=== PATIENT | female | born 1995 | race Caucasian/White ===

== ENCOUNTER 2017-10-16 12:47 | Emergency (ER) | payer OTHER ==
[2017-10-16] MEDS ORDERED: TETRACAINE HCL 0.5% OPH SOLN 2 ML OS ONE (13:10)
--- NOTE | 2017-10-16 14:23 | ER Document Report ---
ED Eye Complaint - General Chief Complaint: Eye Injury Stated Complaint: LEFT EYE PAIN Time Seen by Provider: 10/16/17 13:04 Notes: Patient is a 39.5 week 22 year old female who presents to the ED complaining of left eye injury. Patient states that her son accidentally put his finger in her eye and she admits to pain. She states that she is able to see out of the eye denies any floaters, loss of vision, halos, spots. Able to tolerate visual acuity test. Does not wear contact lenses. TRAVEL OUTSIDE OF THE [place] IN LAST 30 DAYS: No - Related Data Allergies/Adverse Reactions: No Known Allergies Allergy (Unverified 10/16/17 12:48) Past Medical History - Social History Smoking Status: Never Smoker Chew tobacco use (# tins/day): No Frequency of alcohol use: None Drug Abuse: None Family History: Reviewed & Not Pertinent Patient has suicidal ideation: No Patient has homicidal ideation: No Renal/ Medical History: Denies: Hx Peritoneal Dialysis Review of Systems - Review of Systems Constitutional: No symptoms reported EENT: See HPI Cardiovascular: No symptoms reported Respiratory: No symptoms reported Skin: No symptoms reported -: Yes All other systems reviewed and negative Physical Exam - Vital signs Vitals: Temp Pulse Resp BP Pulse Ox 97.7 F 95 18 132/78 H 98 10/16/17 12:53 10/16/17 12:53 10/16/17 12:53 10/16/17 12:53 10/16/17 12:53 - Notes Notes: PHYSICAL EXAM GENERAL: Alert, interacts well. HEAD: Normocephalic, atraumatic. EYES: Pupils equal, round, and reactive to light. Extraocular movements intact. Fluoscein testing with central abraison left eye no FB ENT: Oral mucosa moist, tongue midline. NECK: Full range of motion. Supple. Trachea midline. NEUROLOGICAL: Alert and oriented x4. Normal speech. PSYCH: Normal affect, normal mood. SKIN: Warm, dry, normal turgor. No rashes or lesions noted. - HEENT Visual acuity- Right eye: 20/15 Visual acuity- Left eye: 20/40 Visual acuity- Both eyes: 20/15 Corrective lenses worn: No Course - Re-evaluation Re-evalutation: Patient is a 22-year-old female hemodynamic stable, no acute distress. Presentation is consistent with a corneal abrasion. Patient educated on expectations, antibiotics and pain management. Patient to follow-up with ophthalmology on Thursday. - Vital Signs Vital signs: Temp Pulse Resp BP Pulse Ox 97.9 F 88 18 130/81 H 99 10/16/17 14:32 10/16/17 14:32 10/16/17 14:32 10/16/17 14:32 10/16/17 14:32 Discharge - Discharge Clinical Impression: Corneal abrasion Qualifiers: Encounter type: initial encounter Laterality: left Qualified Code(s): S05.02XA - Injury of conjunctiva and corneal abrasion without foreign body, left eye, initial encounter Condition: Good Disposition: HOME, SELF-CARE Instructions: Corneal Abrasion ([facility]) Prescriptions: Ketorolac Tromethamine 0.45% [Acuvail 0.45% Oph Soln 0.4 ml/Dropperette] 1 drop OS BID #10 droperette Polymyxin B Sulf/Trimethoprim [Polytrim Eye Drops] 1 drop OD Q3H #10 ml Referrals: JOHN MCCRACKEN MD [Primary Care Provider] - Follow up as needed GASTON DEJESUS MD [ACTIVE STAFF] - Follow up in 3-5 days
[2017-10-16 14:33] VITALS: BP 130/81
== END 2017-10-16 14:33 | disposition home or self-care (01) ==
LOC: ER 12:47
DX: O9A.213 Injury, poisoning and certain other consequences of external causes complicating pregnancy, third trimester (principal); S05.02XA Injury of conjunctiva and corneal abrasion without foreign body, left eye, initial encounter; X58.XXXA Exposure to other specified factors, initial encounter; Z3A.39 39 weeks gestation of pregnancy
CPT/HCPCS: 99283

== ENCOUNTER 2017-10-28 06:39 | Inpatient (IN) | payer OTHER ==
[2017-10-28] MEDS ORDERED: RINGERS SOLUTION,LACTATED 1,000 ML IV PRN (06:59)
[2017-10-28] MEDS ORDERED: RINGERS SOLUTION,LACTATED 300 ML IV ONE (06:59)
[2017-10-28] MEDS ORDERED: OXYTOCIN/NORMAL SALINE 20 UNIT/1,000 ML RTUINJ IV PRN ×2 (06:59→15:49)
[2017-10-28 07:01] LABS: APPEARANCE,URINE CLOUDY; BILIRUBIN,URINE NEGATIVE (NEGATIVE); COLOR,URINE AMBER; GLUCOSE, URINE NEGATIVE (NEGATIVE); KETONES,URINE NEGATIVE (NEGATIVE); LEUKOCYTE ESTERASE,URINE MODERATE (NEGATIVE); NITRITE,URINE NEGATIVE (NEGATIVE); PROTEIN,URINE NEGATIVE (NEGATIVE); URINE SPECIFIC GRAVITY 1.018; UROBILINOGEN,URINE NEGATIVE mg/dL (<2.0)
[2017-10-28 07:17] LABS: URINE AMPHETAMINES SCREEN NEGATIVE; URINE BARBITURATES SCREEN NEGATIVE; URINE BENZODIAZEPINES SCREEN NEGATIVE; URINE COCAINE SCREEN NEGATIVE; URINE MARIJUANA (THC) SCREEN NEGATIVE; URINE METHADONE SCREEN NEGATIVE; URINE PHENCYCLIDINE SCREEN NEGATIVE
[2017-10-28 07:40] LABS: ABSOLUTE BASOPHILS # (AUTO) 0.1 10^3/uL (0.0-0.2); ABSOLUTE EOSINOPHILS # (AUTO) 0.1 10^3/uL (0.0-0.6); ABSOLUTE LYMPHOCYTES (AUTO) 2.5 10^3/uL (0.5-4.7); ABSOLUTE MONOCYTES (AUTO) 0.9 10^3/uL (0.1-1.4); BASOPHILS % (AUTO) 0.5 % (0-2); EOSINOPHILS % (AUTO) 0.8 % (0-6); HEMATOCRIT 37.1 % (36.0-47.0); HEMOGLOBIN 12.7 g/dL (12.0-15.5); LYMPHOCYTES % (AUTO) 21.5 % (13-45); MEAN CORPUSCULAR HEMOGLOBIN 30.3 pg (27.0-33.4); MEAN CORPUSCULAR HGB CONC 34.2 g/dL (32.0-36.0); MEAN CORPUSCULAR VOLUME 89 fl (80-97); PLATELET COUNT 178 10^3/uL (150-450); RED BLOOD COUNT 4.19 10^6/uL (3.72-5.28); RED CELL DISTRIBUTION WIDTH 14.8 % (11.5-14.0); SEGMENTED NEUTROPHILS % (AUTO) 69.2 % (42-78); TOTAL CELLS COUNTED % (AUTO) 100 %; WHITE BLOOD COUNT 11.6 10^3/uL (4.0-10.5)
[2017-10-28] MEDS ORDERED: LIDOCAINE 1% INJ-PF (10 MG/ML) 30 ML SDV ONE (08:05)
[2017-10-28] MEDS ORDERED: OXYTOCIN/NORMAL SALINE 20 UNIT/1,000 ML RTUINJ ONE (08:05)
[2017-10-28] MEDS ORDERED: MISOPROSTOL 0.2 MG TABLET ONE (08:05)
--- NOTE | 2017-10-28 08:58 | Warning Signs in Babies ---
VOD Warning Signs Datetime Report Generated by [facility]: 10/28/2017 08:58 VOD#608 -Warning Signs in Babies: Viewed with Parent(s)/Family (10/28/2017 06:52:Siri Melgoza RN)
--- NOTE | 2017-10-28 09:19 | Admission Physical ---
Datetime Report Generated by CPN: 10/28/2017 09:19 CURRENT ADMISSION Admit Impression : Term, Intrauterine Admit Plan: Admit to Unit ALLERGIES Medication Allergies: No Medication Allergies: No Known Allergies (10/28/2017) Latex: No Latex Allergies OBSTETRICAL HISTORY EDC: 10/23/2017 00:00 : 2 Para: 1 Term: 1 : 0 SAB: 0 IAB: 0 Ectopic: 0 Livin Cesareans: 0 VBACs: 0 Multiple Births: 0 Gestational Diabetes: No Rh Sensitization: No Incompetent Cervix: No SHAREE: No Infertility: No ART Treatment: No Uterine Anomaly: No IUGR: No Hx Previous C/S: No Macrosomia: No Hx Loss/Stillborn: No PIH: No Hx : No Placenta Previa/Abruption: No Depression/PP Depression: No PTL/PROM: No Post Hemorrhage: No Current Procedures: Ultrasound; NST Obstetrical History Comments: -2015 baby boy 7lbs 8 oz epidural g2- current SEE RECORDS Alcohol: No Marijuana : No Cocaine: No Other Illicit Drugs: No Cigarettes: Never Smoker. [id number] MEDICAL HISTORY Diabetes: No Blood Transfusion: No Pulmonary Disease (Asthma, TB): No Breast Disease: No Hypertension: No Armament Mechanic Surgery: No Heart Disease: No Hosp/Surgery: Yes Autoimmune Disorder: No Anesthetic Complications: No Kidney Disease: No Abnormal Pap Smear: No Neuro/Epilepsy: No Psychiatric Disorders: No Other Medical Diseases: No Hepatitis/Liver Disease: No Significant Family History: No Varicosities/Phlebitis: No Trauma/Violence : No Thyroid Dysfunction: Yes Medical History Comments: hashimotos INFECTIOUS HISTORY Gonorrhea: No Genital Herpes: No Chlamydia: No Tuberculosis: No Syphilis: No Hepatitis: No HIV/AIDS Exposure: No Rash or Viral Illness: No HPV: No PHYSICAL EXAM General: Normal HEENT: Normal Neurologic: Normal Thyroid: Normal Heart: Normal Lungs: Normal Breast: Normal Back: Normal Abdomen: Normal Genitourinary Exam: Normal Extremities: Normal DTRs: Normal Pelvic Type: Adequate VAGINAL EXAM Dilatation: 4 Effacement: 50 Station: -2 MEMBRANES Membranes: Ruptured Amniotic Fluid Color: Clear FETUS A Monitoring: External US FHR- Baseline: 125 Variability: Moderate 6-25bpm Accelerations: 10X10 Decelerations: None Presentation: Vertex Admit Comment: 22 yo admitted for iol term nkda edc per lmp 10/23/17 term abdomen nontender fHts 125 average variability uteriine contractions q2-4 min pitocin at 4 milliunits/min epidural prn anticipate PLANS FOR LABOR AND DELIVERY Labor and Delivery: None Pain Management: Epidural Feeding Preference: Breast Benefit of Breast Feed Discussed: Yes Circumcision: Yes INFORMED CONSENT Assignment: Nitin Jiang MD Signature: with User ID: David : with User ID: David
[2017-10-28] MEDS ORDERED: FENTANYL/BUPIVACAINE/NS/PF 300 MCG/150 ML RTUINJ EPI ONE (10:06)
[2017-10-28] MEDS ORDERED: BUPIVACAINE HCL 0.25 % INJ/PF (2.5 MG/1 ML) 30 ML VIAL ONE (10:06)
[2017-10-28] MEDS ORDERED: EPHEDRINE SULFATE INJ 50 MG/1 ML AMPULE ONE (10:06)
[2017-10-28] MEDS ORDERED: LIDOCAINE 2% INJ-PF (20 MG/ML) 10 ML AMPUL ONE (12:42)
--- NOTE | 2017-10-28 14:38 | Warning Signs in Babies ---
VOD Warning Signs Datetime Report Generated by [facility]: 10/28/2017 14:38 VOD#608 -Warning Signs in Babies: Viewed with Parent(s)/Family (10/28/2017 14:30:Michelle Gutierres RN)
[2017-10-28] MEDS ORDERED: BENZOCAINE/MENTHOL AEROSOL SPRAY 56 ML TOP PRN (15:49)
[2017-10-28] MEDS ORDERED: DIBUCAINE 1% OINTMENT 28 GM TP PRN (15:49)
[2017-10-28] MEDS ORDERED: MEASLES,MUMPS&RUBELLA VACC/PF 0.5 ML VIAL SUBCUT PRN (15:49)
[2017-10-28] MEDS ORDERED: DIPH/PERTUSS(ACELL)/TETANUS VAC/PF 0.5 ML SYR (>=10YO) IM PRN (15:49)
[2017-10-28] MEDS ORDERED: ZOLPIDEM TARTRATE 5 MG TABLET PO PRN (15:49)
--- NOTE | 2017-10-28 15:53 | Delivery Summary ---
Del Sum A-C Datetime Report Generated by CPN: 10/28/2017 15:52 DELIVERY PERSONNEL DELIVERY PERSONNEL: [id number] Delivery Doctor:: Selena Muhammad CNM Labor and Delivery Nurse:: Siri Melgoza RNroll slicing machine tender Nurse:: Michelle Gutierres RN Nursery Nurse:: Nettie Mir RN Student Observers:: Mary Wilson RN Buffing Wheel Operator/OVERNIGHT ASSOCIATE: Damari Gutierres CST Buffing Wheel Operator/OVERNIGHT ASSOCIATE: Neeru Patton CNA II MATERNAL INFORMATION Delivery Anesthesia: Epidural Medications After Delivery: Pitocin Bolus-Please Comment Meds After Delivery Comment: Pitocin 20 Units in 1 L NS bolusing per order. Maternal Complications: None Provider Comments: bed prepared for delivery delivery of viable male apgars 8.9 bulb suctioned on perineum LISSETTE left compound hand nuchal x 1 easily reduced to abdomen tactile stimulation elicits spont cry cord clamped cut by fob cord blood obtained placenta intact 3vc 2nd degree vaginal laceration repaired with 2.0 chromic gut under epidural swollen perinuem x3 contractions with pushing ebl 200 cc hemostasis achieved bonding well with infant LABOR SUMMARY EDC: 10/23/2017 00:00 No. Babies in Womb: 1 Attempted: No Labor Anesthesia: Epidural LABOR INFORMATION Reason for Induction: Post Dates Onset of Labor: 10/28/2017 08:15 Complete Dilatation: 10/28/2017 13:47 Oxytocin: Induction Group B Beta Strep: Negative Antibiotics # of Doses: 0 Steroids Given: None Reason Steroids Not Administered: Not Applicable MEMBRANES Membranes Rupture Method: Artificial Rupture of Membranes: 10/28/2017 08:26 Length of Rupture (hr): 5.60 Amniotic Fluid Color: Clear Amniotic Fluid Amount: Large Amniotic Fluid Odor: Normal STAGES OF LABOR Stage 1 hr: 5 Stage 1 min: 32 Stage 2 hr: 0 Stage 2 min: 15 Stage 3 hr: 0 Stage 3 min: 2 Total Time in Labor hr: 5 Total Time in Labor min: 49 VAGINAL DELIVERY Episiotomy: None Laceration #1: Vaginal Laceration Extension #1: Second Degree Laceration Repair: Yes Laceration Repair Note: 2.0 chromic gut under epidural Sponge Count Correct: N/A Sharps Count Correct: N/A CSECTION DELIVERY Primary Indication: N/A Secondary Indication: N/A CSection Incidence: N/A Labor: N/A Elective: N/A BABY A INFORMATION Delivery Date/Time: 10/28/2017 14:02 Method of Delivery: Vaginal Born in Route : No : N/A Forceps: N/A Vacuum Extraction: N/A Shoulder Dystocia : No PRESENTATION/POSITION BABY A Presentation: Cephalic Cephalic Presentation: Vertex Vertex Position: Left Occipital Anterior Breech Presentation: N/A PLACENTA INFORMATION BABY A Placenta Delivery Time : 10/28/2017 14:04 Placenta Method of Delivery: Spontaneous Placenta Status: Delivered SCORES BABY A Heart Rate 1 min: >100 bpm Resp Effort 1 min: Good Cry Reflex Irritability 1 min: Cough or Sneeze or Pulls Away Muscle Tone 1 min: Active Motion Color 1 min: Blue/Pale Resuscitation Effort 1 min: Tactile Stimulation SCORE 1 MIN: 8 Heart Rate 5 min: >100 bpm Resp Effort 5 min: Good Cry Reflex Irritability 5 min: Cough or Sneeze or Pulls Away Muscle Tone 5 min: Active Motion Color 5 min: Body [place], Extremities Blue Resuscitation Effort 5 min: Tactile Stimulation SCORE 5 MIN: 9 INFORMATION BABY A Gestational Age at Delivery: 40.5 Gestational Status: Full Term- 39- 40.6 Weeks Outcome : Liveborn Infant Condition : Stable Infant Sex: Male IDENTIFICATION BABY A Verification Date/Time: 10/28/2017 15:11 ID Band Number: [id number] Mother's Name Verified: Yes Infant RN Verifying : K Clarke RNC/A Melgoza RN WEIGHT/LENGTH BABY A Infant Birthweight (gm): 4050 Infant Weight (lb): 8 Weight (oz): 15 Infant Length (in): 22.00 Infant Length (cm): 55.88 CORD INFORMATION BABY A No. Cord Vessels: 3 Nuchal Cord : Around Neck x1, Loose Nuchal Cord- Other: compound left Cord Blood Taken: Yes-For Eval (Mom's Blood Type - or O+) Infant Suction: Mouth ASSESSMENT BABY A Complications: Other Complications- Other: compound left arm Physical Findings at Delivery: Within Normal Limits Infant Respirations: Appears Normal Skin to Skin: Yes Skin to Skin Time (min): 60 Finance Insurance Manager/ALS Called : No Care By: John Mir [facility] Transferred To: Remains with Mother BABY B INFORMATION : N/A SIGNATURES Assignment: Nitin Jiang MD Signature: with User ID: David : with User ID: David
[2017-10-28] MEDS: FERROUS SULFATE 325 MG TABLET PO SCH (17:56)
[2017-10-28] MEDS: DOCUSATE SODIUM 100 MG CAPSULE PO SCH (17:57)
[2017-10-28] MEDS: IBUPROFEN 800 MG TABLET PO SCH (22:13)
[2017-10-29] MEDS: IBUPROFEN 800 MG TABLET PO SCH ×3 (06:19→21:57)
[2017-10-29 08:37] LABS: HEMATOCRIT 33.5 % (36.0-47.0); HEMOGLOBIN 11.3 g/dL (12.0-15.5); MEAN CORPUSCULAR HEMOGLOBIN 30.3 pg (27.0-33.4); MEAN CORPUSCULAR HGB CONC 33.7 g/dL (32.0-36.0); MEAN CORPUSCULAR VOLUME 90 fl (80-97); PLATELET COUNT 161 10^3/uL (150-450); RED BLOOD COUNT 3.73 10^6/uL (3.72-5.28); RED CELL DISTRIBUTION WIDTH 15.3 % (11.5-14.0); WHITE BLOOD COUNT 12.8 10^3/uL (4.0-10.5)
[2017-10-29] MEDS: DOCUSATE SODIUM 100 MG CAPSULE PO SCH ×2 (09:22→17:29)
[2017-10-29] MEDS: PRENATAL VITAMIN W DHA CAPSULE PO SCH (09:22)
[2017-10-29] MEDS: SENNOSIDES/DOCUSATE 8.6-50 MG 1 EACH TABLET PO SCH (09:23)
[2017-10-29] MEDS: FERROUS SULFATE 325 MG TABLET PO SCH ×2 (09:23→17:29)
--- NOTE | 2017-10-29 13:46 | PDOC PROGRESS REPORT ---
Subjective-OB Progress Note for:: 10/29/17 Subjective: s/p day #1 Pt denies concerns, states lochia is stable, pain is well controlled, voiding without difficulty. Physical Exam (OB) Vital Signs: Temp Pulse Resp BP Pulse Ox 99.2 F 67 17 109/57 L 98 10/29/17 08:02 10/29/17 08:02 10/29/17 08:02 10/29/17 08:02 10/29/17 08:02 Intake & Output 10/28/17 10/29/17 10/30/17 06:59 06:59 06:59 Intake Total 400 Balance 400 Weight 71 kg - Lochia Lochia Amount: Scant < 10 ml Lochia Color: Rubra/Red - Abdomen Description: Tender, Soft Hernia Present: No Fundal Description: Firm, Midline Fundal Height: u/u - u/2 Objective-Diagnostic Laboratory: 10/29/17 07:10 10/29/17 07:10 WBC 12.8 H RBC 3.73 Hgb 11.3 L Hct 33.5 L MCV 90 MCH 30.3 MCHC 33.7 RDW 15.3 H Plt Count 161 Assessment and Plan(PN) - Assessment and Plan (1) Vaginal delivery Is this a current diagnosis for this admission?: Yes Plan: routine pp care - Time Spent with Patient Time with patient: Less than 15 minutes Critical Time spent with patient: Less than 15 minutes Medications reviewed and adjusted accordingly: Yes - Disposition Anticipated Discharge: Home Within: within 24 hours
[2017-10-30] MEDS: IBUPROFEN 800 MG TABLET PO SCH ×2 (06:47→13:27)
--- NOTE | 2017-10-30 10:20 | PDOC DISCHARGE SUMMARY ---
Final Diagnosis Discharge Date: 10/30/17 - Final Diagnosis (1) Vaginal delivery Is this a current diagnosis for this admission?: Yes Discharge Data - Discharge Medication Home Medications: 95/Iron Fum/Folic/Dha [ + Dha Combo Pack] 1 each PO DAILY 10/28 Reason(s) for Admission: Induction of Labor Intrapartum Procedure(s): Spontaneous Vaginal Delivery Complication(s): Laceration-Vaginal Laceration-Degree: 2nd - Diagnosis Test Laboratory: Temp Pulse Resp BP Pulse Ox 98.3 F 96 16 119/62 99 10/30/17 07:56 10/30/17 07:56 10/30/17 07:56 10/30/17 07:56 10/30/17 07:56 10/28/17 10/28/17 10/29/17 06:47 07:29 07:10 RBC 4.19 3.73 Hgb 12.7 11.3 L Hct 37.1 33.5 L Urine Opiates Screen NEGATIVE - Discharge information/Instructions Discharge Activity: Activity As Tolerated Discharge Diet: Regular Disposition: HOME, SELF-CARE Follow up with: [facility] in: 3
[2017-10-30] MEDS: PRENATAL VITAMIN W DHA CAPSULE PO SCH (11:37)
[2017-10-30] MEDS: FERROUS SULFATE 325 MG TABLET PO SCH (11:37)
[2017-10-30] MEDS: SENNOSIDES/DOCUSATE 8.6-50 MG 1 EACH TABLET PO SCH (11:37)
[2017-10-30] MEDS: DOCUSATE SODIUM 100 MG CAPSULE PO SCH (11:38)
[2017-10-30 12:57] VITALS: BP 111/52
== END 2017-10-30 13:35 | disposition home or self-care (01) | DRG 775 ==
LOC: LR 06:39 → 2S 16:12
PROVIDERS: ADMIT Obstetrics & Gynecology; ATTEND Obstetrics & Gynecology
PROC: 10E0XZZ Delivery of Products of Conception, External Approach (ICD-10-PCS; principal; 2017-10-28)
PROC: 0KQM0ZZ Repair Perineum Muscle, Open Approach (ICD-10-PCS; 2017-10-28)
PROC: 4A1HXCZ Monitoring of Products of Conception, Cardiac Rate, External Approach (ICD-10-PCS; 2017-10-28)
PROC: 3E033VJ Introduction of Other Hormone into Peripheral Vein, Percutaneous Approach (ICD-10-PCS; 2017-10-28)
PROC: 10907ZC Drainage of Amniotic Fluid, Therapeutic from Products of Conception, Via Natural or Artificial Opening (ICD-10-PCS; 2017-10-28)
PROC: 3E0234Z Introduction of Serum, Toxoid and Vaccine into Muscle, Percutaneous Approach (ICD-10-PCS; 2017-10-30)
DX: O99.284 Endocrine, nutritional and metabolic diseases complicating childbirth (principal); O70.1 Second degree perineal laceration during delivery; E06.3 Autoimmune thyroiditis; O32.6XX0 Maternal care for compound presentation, not applicable or unspecified; O69.81X0 Labor and delivery complicated by cord around neck, without compression, not applicable or unspecified; O48.0 Post-term pregnancy; Z3A.40 40 weeks gestation of pregnancy; Z37.0 Single live birth; Z23 Encounter for immunization
CPT/HCPCS: 36415; 80307; 81005; 85025; 85027; 86592; 86850; 86900; 86901; 90707; 94760; J2590; J3010; J3490